=== PATIENT | female | born 1985 | race Caucasian/White ===

== ENCOUNTER 2020-07-05 19:10 | Inpatient (IN) ==
[2020-07-05] MEDS ORDERED: Lactated Ringers 1000 ml BAG 1,000 ML IV ONE (20:44)
[2020-07-05] MEDS ORDERED: Dinoprostone 10 MG VAG.SUPP VAGINAL ONE (21:00)
[2020-07-05 21:53] LABS: Urine Benzodiazepine Screen None Detected (None Detect); Urine Opiates Screen None Detected (None Detect)
[2020-07-06] MEDS ORDERED: Oxytocin in LR 20 UNITS/1,000 ML BAG IVPB SCH (10:00)
[2020-07-06] MEDS: Lactated Ringers 1000 ml BAG 1,000 ML IV SCH ×2 (10:45→19:14)
[2020-07-06] MEDS ORDERED: Morphine 10 MG/ML VIAL (1 ml) IV ONE (11:24)
[2020-07-06] MEDS ORDERED: Promethazine INJ(RESTRICTED) 25 MG/ML 1 ml VIAL IV ONE (11:25)
[2020-07-06 11:38] LABS: Hematocrit 35 % (35-47); Hemoglobin 12.1 g/dL (12.0-16.0); Mean Corpuscular HGB Conc 35 g/dL (31-36); Mean Corpuscular Hemoglobin 31 pg (27-31); Mean Corpuscular Volume 89 fL (80-97); Mean Platelet Volume 9.9 fL (7.4-10.4); Platelet Count 163 10^3/uL (150-450); Red Blood Count 3.94 10^6 /uL (3.70-4.87); Red Cell Distribution Width 13 % (10-15); White Blood Count 9.1 10^3/uL (3.5-10.8)
[2020-07-06 11:47] LABS: ABS Lymphocytes 0.8 10^3/ul (1.0-4.8); ABS Monocytes 0.7 10^3/ul (0-0.8); ABS Neutrophils 7.6 10^3/ul (1.5-7.7); Eosinophil % 0.3 %; Lymphocyte % 8.4 %
[2020-07-06] MEDS ORDERED: Ondansetron 4 mg VIAL 2 MG/ML 2 ml VIAL IV ONE (18:55)
[2020-07-06] MEDS ORDERED: OBEPIDURAL 250 ML EPIDURAL ONE (20:05)
[2020-07-06] MEDS ORDERED: Sodium Citrate/Citric Acid LIQ 15 ML UDC PO PRN (23:20)
[2020-07-06] MEDS ORDERED: Phenylephrine 40 mcg/mL 10mL (400mcg) SYRINGE IV PUSH PRN (23:20)
[2020-07-06] MEDS ORDERED: Lactated Ringers 1000 ml BAG 1,000 ML IV SCH (23:45)
[2020-07-06] MEDS ORDERED: OBEPIDURAL 250 ML EPIDURAL SCH (23:45)
[2020-07-07] MEDS ORDERED: Witch Hazel PAD JAR TOPICAL PRN (02:18)
[2020-07-07] MEDS ORDERED: Dibucaine 1% OINT 28.35 GM TUBE PR PRN (02:18)
[2020-07-07] MEDS ORDERED: Glycerin ADULT 2.4 gm SUPP PR PRN (02:18)
[2020-07-07] MEDS ORDERED: Witch Hazel PAD JAR ONE (02:39)
[2020-07-07] MEDS ORDERED: Dibucaine 1% OINT 28.35 GM TUBE ONE (02:39)
[2020-07-07] MEDS ORDERED: Oxytocin in LR 20 UNITS/1,000 ML BAG IVPB SCH (03:00)
[2020-07-07] MEDS ORDERED: Lactated Ringers 1000 ml BAG 1,000 ML IV SCH (03:00)
[2020-07-07] MEDS ORDERED: Lidocaine 1% VIAL 10 MG/ML VIAL ONE (04:13)
[2020-07-08 07:49] VITALS: BP 118/81
[2020-07-08 08:11] LABS: ABS Eosinophils 0.1 10^3/ul (0-0.6); ABS Lymphocytes 1.1 10^3/ul (1.0-4.8); ABS Monocytes 0.9 10^3/ul (0-0.8); ABS Neutrophils 7.6 10^3/ul (1.5-7.7); Eosinophil % 1.4 %; Hematocrit 31 % (35-47); Lymphocyte % 11.5 %; Mean Corpuscular HGB Conc 36 g/dL (31-36); Mean Corpuscular Hemoglobin 32 pg (27-31); Mean Corpuscular Volume 89 fL (80-97); Mean Platelet Volume 9.4 fL (7.4-10.4); Platelet Count 163 10^3/uL (150-450); Red Blood Count 3.47 10^6 /uL (3.70-4.87); Red Cell Distribution Width 13 % (10-15); White Blood Count 9.8 10^3/uL (3.5-10.8)
== END 2020-07-08 18:03 | disposition home or self-care (01) | DRG 807 ==
LOC: MCHOBOUT 19:10 → MCHOB 19:41
PROVIDERS: ADMIT Midwife; ATTEND Midwife

== ENCOUNTER 2024-03-01 00:38 | Inpatient (IN) ==
[2024-03-01] MEDS ORDERED: Prochlorperazine 5 mg/ml 2 ml VIAL (10 mg) IV PRN (02:38)
[2024-03-01] MEDS ORDERED: Lidocaine 1% VIAL 10 MG/ML 30 ML VIAL INJ PRN (02:38)
[2024-03-01] MEDS ORDERED: Buffered Lidocaine 1% SYRIN 1 ml INTRADERM ONE (02:38)
[2024-03-01] MEDS: miSOPROStol 100 mcg TAB PO ONE (03:59)
[2024-03-01 05:03] LABS: Urine Benzodiazepine Screen None Detected (None Detect); Urine Cannabinoids Screen Presumptive Positive (None Detect); Urine Opiates Screen None Detected (None Detect)
[2024-03-01 07:18] LABS: ABS Lymphocytes 0.8 10^3/uL (1.0-4.8); ABS Monocytes 0.6 10^3/uL (0.0-0.9); Eosinophil % 0.3 %; Hematocrit 32.2 % (35-45); Hemoglobin 10.9 g/dL (11.5-14.3); Mean Corpuscular Hemoglobin 28.2 pg (27-33); Mean Corpuscular Hgb Conc 33.8 g/dL (31-36); Mean Corpuscular Volume 83.4 fL (80-97); Mean Platelet Volume 9.9 fL (7.5-11.2); Platelet Count 188 10^3/uL (150-450); Red Blood Count 3.86 10^6/uL (3.63-4.92); White Blood Count 9.5 10^3/uL (3.8-11.8)
[2024-03-01] MEDS: Lactated Ringers 1000 ml BAG 1,000 ML IV ONE (07:37)
[2024-03-01] MEDS ORDERED: Lidocaine 1.5% EPI 1:200,000 30 ML SDV ONE (08:36)
[2024-03-01] MEDS: Lactated Ringers 1000 ml BAG 1,000 ML IV SCH (08:57)
[2024-03-01] MEDS ORDERED: Sodium Citrate/Citric Acid LIQ 15 ML UDC PO PRN (09:48)
[2024-03-01] MEDS ORDERED: Phenylephrine 40 mcg/mL 10mL (400mcg) SYRINGE IV PUSH PRN ×2 (09:48)
[2024-03-01] MEDS ORDERED: Lactated Ringers 1000 ml BAG 1,000 ML IV ONE (09:48)
[2024-03-01] MEDS ORDERED: Lactated Ringers 1000 ml BAG 1,000 ML IV SCH (10:00)
[2024-03-01] MEDS: OBEPIDURAL (200 ML) 200 ML EPIDURAL ONE (10:00)
[2024-03-01] MEDS ORDERED: OBEPIDURAL (200 ML) 200 ML EPIDURAL SCH (10:00)
[2024-03-01 10:58] LABS: Urine Appearance Clear; Urine Bilirubin Negative (Negative); Urine Blood Negative (Negative); Urine Color Light-Yellow; Urine Glucose Negative (Negative); Urine Ketones Negative (Negative); Urine Nitrite Negative (Negative); Urine Protein Negative (Negative); Urine Specific Gravity 1.012 (1.002-1.030); Urine Urobilinogen Negative (Negative); Urine pH 7.5 (5.0-8.0)
[2024-03-01] MEDS: Ondansetron 4 mg VIAL 2 MG/ML 2 ml VIAL IV PRN (15:31)
[2024-03-01] MEDS: Oxytocin in LR 20,000 MILLI.UNIT/1,000 ML BAG IV SCH (16:24)
[2024-03-01] MEDS ORDERED: Glycerin ADULT 2.4 gm SUPP PR PRN (18:36)
[2024-03-01] MEDS ORDERED: Dibucaine 1% OINT 28.35 GM TUBE PR PRN (18:36)
[2024-03-01] MEDS ORDERED: Witch Hazel PAD JAR TOPICAL PRN (18:36)
[2024-03-01] MEDS ORDERED: Oxytocin in LR 20,000 MILLI.UNIT/1,000 ML BAG IV SCH (18:40)
[2024-03-02 06:58] LABS: ABS Eosinophils 0.1 10^3/uL (0.0-0.5); ABS Lymphocytes 0.9 10^3/uL (1.0-4.8); Eosinophil % 0.6 %; Hematocrit 29.5 % (35-45); Lymphocyte % 9.7 %; Mean Corpuscular Hemoglobin 28.4 pg (27-33); Mean Corpuscular Volume 83.5 fL (80-97); Mean Platelet Volume 9.7 fL (7.5-11.2); Platelet Count 150 10^3/uL (150-450); Red Blood Count 3.53 10^6/uL (3.63-4.92); Red Cell Distribution Width 13.2 % (12-17); White Blood Count 8.9 10^3/uL (3.8-11.8)
[2024-03-03 13:28] VITALS: BP 147/80
== END 2024-03-03 17:20 | disposition home or self-care (01) | DRG 807 ==
LOC: MCHOBOUT 00:38 → MCHOB 01:01
PROVIDERS: ADMIT Advanced Practice Midwife